=== PATIENT | female | born 1960 | race African-American/Black ===

== ENCOUNTER 2016-12-08 13:54 | Inpatient (IN) | payer OTHER ==
[2016-12-08 15:13] VITALS: BMI 19.1
--- NOTE | 2016-12-08 17:03 | HP ---
COWS - Scale Resting Pulse: 1= [place] 81-100 Sweatin=Flushed/Facial Moisture Restless Observation: 1= Difficult to Sit Still Pupil Size: 2= Moderately Dilated Bone or Joint Aches: 2= Severe Diffuse Aches Runny Nose/ Eye Tearin= Runny Nose/Eyes GI Upset > 30mins: 2= Nausea/Diarrhea Tremor Observation: 2= Slight Tremor Visible Yawning Observation: 1= 1-2x During Session Anxiety or Irritability: 2=Irritable/Anxious Goose Flesh Skin: 0=Smooth Skin COWS Score: 17 CIWA Score - CIWA Score Nausea/Vomitin Muscle Tremors: 4-Moderate,w/Arms Extend Anxiety: 4-Mod. Anxious/Guarded Agitation: 3 Paroxysmal Sweats: 3 Orientation: 0-Oriented Tacttile Disturbances: 0-None Auditory Disturbances: 0-None Visual Disturbances: 0-None Headache: 0-None Present CIWA-Ar Total Score: 17 Admission ROS BHS - HPI Chief Complaint: Withdrawal sx. Allergies/Adverse Reactions: Allergies Allergy/AdvReac Type Severity Reaction Status Date / Time No Known Allergies Allergy Verified 12/08/16 16:58 History of Present Illness: 55 y/o woman with a long hx. of drug and alcohol dependence is admitted for detox. Pt. has been in previous detox & rehab denies significant sobriety. She' s on OTP being detox for non-compliance, however she'll be build up once they know that she's in detox. We'll order detox protocol and program will be called on Saturday pt. is ok with the plan. Exam Limitations: No Limitations - Ebola screening Have you traveled outside of the country in the last 21 days: No Have you had contact with anyone from an Ebola affected area: No Have you been sick,other than usual withdrawal symptoms: No Do you have a fever: No - Review of Systems Constitutional: Diaphoresis EENT: reports: No Symptoms Reported Respiratory: reports: Cough, Shortness of Breath (COPD) Cardiac: reports: No Symptoms Reported GI: reports: Nausea, Abdominal cramping : reports: Frequency Musculoskeletal: reports: Back Pain, Joint Pain Integumentary: reports: Sweating Neuro: reports: Tremors Endocrine: reports: No Symptoms Reported Hematology: reports: No Symptoms Reported Psychiatric: reports: No Sypmtoms Reported Other Systems: Reviewed and Negative Patient History - Patient Medical History Hx Anemia: No Hx Asthma: No Hx Chronic Obstructive Pulmonary Disease (COPD): Yes Hx Cancer: No Hx Cardiac Disorders: No Hx Congestive Heart Failure: No Hx Hypertension: Yes (Non-compliant with meds, she thinks it's Lisinopril) Hx Hypercholesterolemia: No Hx Pacemaker: No HX Cerebrovascular Accident: No Hx Seizures: No Hx Dementia: No Hx Diabetes: No Hx Gastrointestinal Disorders: No Hx Liver Disease: No Hx Genitourinary Disorders: No Hx Sexually Transmitted Disorders: No Hx Renal Disease (ESRD): No Hx Thyroid Disease: No Hx Human Immunodeficiency Virus (HIV): No Hx Hepatitis C: No Hx Depression: Yes Hx Suicide Attempt: No Hx Bipolar Disorder: Yes Hx Schizophrenia: No - Patient Surgical History Past Surgical History: Yes Hx Lung Surgery: Yes (mass removed 06/2013) Hx Cholecystectomy: Yes Hx Hysterectomy: (s/p tubal ligation ) Other Surgical History: Tubal Ligation & Mass Removed from Lung Anesthesia Reaction: No - PPD History Previous Implant?: Yes Documented Results: Positive w/o proof PPD to be Administered?: Yes - Reproductive History Patient is a Female of Child Bearing Age (11 -55 yrs old): No Last Menstrual Period: 12/03/07 Patient : No - Smoking Cessation Smoking history: Current every day smoker Have you smoked in the past 12 months: Yes Aproximately how many cigarettes per day: 15 Hx Chewing Tobacco Use: No Initiated information on smoking cessation: Yes 'Breaking Loose' booklet given: 12/08/16 - Substance & Tx. History Hx Alcohol Use: Yes Hx Substance Use: Yes Substance Use Type: Alcohol, Heroin, Opiates Hx Substance Use Treatment: Yes (Rehab AT [facility] in 2013) - Substances Abused Alcohol Route: Oral Frequency: Daily Amount used: Beer 3-4(6pack) Age of first use: 19 (none after that until 49 y/o) Date of Last Use: 12/08/16 Heroin Route: Inhalation Frequency: Daily Amount used: 4 bags Age of first use: 22 Date of Last Use: 12/08/16 Family Disease History - Family Disease History Family Disease History: Diabetes: Grandparent (HTN), Heart Disease: Grandparent , Mother (HTN), Other: Brother (Heroin IV) Admission Physical Exam BHS - Vital Signs Vital Signs: Vital Signs - 24 hr 12/08/16 15:11 Temperature 98.3 F Pulse Rate 90 Respiratory 20 Rate Blood Pressure 137/94 - Physical General Appearance: Yes: Alcohol on Breath, Tremorous, Irritable, Sweating, Anxious HEENTM: Yes: Nasal Congestion, Rhinorrhea Respiratory: Yes: Chest Non-Tender, Lungs Clear, Normal Breath Sounds Neck: Yes: Supple Breast: Yes: Breast Exam Deferred Cardiology: Yes: Regular Rhythm, Regular Rate, S1, S2 Abdominal: Yes: Normal Bowel Sounds, Non Tender, Flat, Soft Genitourinary: Yes: Within Normal Limits Back: Yes: Within Normal Limits Musculoskeletal: Yes: Within Normal Limits Extremities: Yes: Tremors Neurological: Yes: Fully Oriented, Alert Integumentary: Yes: Diaphoresis Lymphatic: Yes: Within Normal Limits - Diagnostic (1) COPD (chronic obstructive pulmonary disease) with emphysema Current Visit: Yes Status: Chronic (2) Alcohol dependence with uncomplicated withdrawal Current Visit: Yes Status: Acute (3) Opioid dependence with withdrawal Current Visit: Yes Status: Acute Cleared for Admission [facility] - Detox or Rehab [facility] Level of Care: Medically Managed Detox Regimen/Protocol: Methadone/Librium [facility] Breath Alcohol Content Breath Alcohol Content: 0.024 Urine Pregancy Test - Result Urine Test Results: Negative- NO Line Present Urine Drug Screen - Results Drug Screen Negative: No Urine Drug Screen Results: THC-Marijuana, OPI-Opiates, MTD-Methadone
[2016-12-08] MEDS ORDERED: MAGNESIUM HYDROX 2400MG/30ML ORAL SUSPENSION 30 ML CUP PO PRN (17:20)
[2016-12-08] MEDS ORDERED: chlordiazePOXIDE HCL 25 MG CAPSULE PO PRN (17:20)
[2016-12-08] MEDS ORDERED: guaiFENesin/D-METHORPHAN HB 10 ML UNIT-DOSE CUPS PO PRN (17:20)
[2016-12-08] MEDS ORDERED: MAG HYDROX/AL HYDROX/SIMETH 30 ML UNIT-DOSE CUP PO PRN (17:20)
[2016-12-08] MEDS ORDERED: METHADONE HCL 10 MG TABLET (FOR DETOX USE ONLY) PO ONE ×2 (17:20→23:00)
[2016-12-08] MEDS ORDERED: MAGNESIUM CITRATE 300 ML BOTTLE PO PRN (17:20)
[2016-12-08] MEDS ORDERED: NICOTINE POLACRILEX 2 MG GUM BC PRN (17:20)
[2016-12-08] MEDS ORDERED: MENTHOL/PHENOL 1 EACH UD MM PRN (17:20)
[2016-12-08] MEDS ORDERED: chlordiazePOXIDE HCL 25 MG CAPSULE PO ONE (17:20)
[2016-12-08] MEDS ORDERED: P-EPHED 60MG/TRIPROLIDI 2.5MG TABLET PO PRN (17:20)
[2016-12-08] MEDS ORDERED: LOPERAMIDE HCL 2 MG CAPSULE PO PRN (17:20)
[2016-12-08] MEDS ORDERED: ALBUTEROL SO4 18 GM HFA INHALER IH PRN (17:22)
[2016-12-08] MEDS ORDERED: ALBUTEROL SO4 2.5/IPRATROPIUM 0.5 INH SOL 3 ML VIAL.NEB. NEB PRN (17:25)
[2016-12-08] MEDS: NICOTINE 21 MG/24 HOURS TOPICAL PATCH TD SCH (18:01)
[2016-12-08 20:15] LABS: URINE APPEARANCE SLCLOUDY; URINE BILIRUBIN NEGATIVE (NEGATIVE); URINE BLOOD 1+ (NEGATIVE); URINE COLOR LTYELLOW; URINE GLUCOSE (UA) NEGATIVE (NEGATIVE); URINE KETONE NEGATIVE (NEGATIVE); URINE NITRITE NEGATIVE (NEGATIVE); URINE PROTEIN NEGATIVE (NEGATIVE); URINE UROBILINOGEN NEGATIVE mg/dL (0.2-1.0)
[2016-12-08 22:27] LABS: URINE LEUK ESTERASE 2+ (NEGATIVE)
[2016-12-08] MEDS: chlordiazePOXIDE HCL 25 MG CAPSULE PO SCH (22:56)
[2016-12-08] MEDS: THIAMINE HCL 100 MG TABLET (FP) PO SCH (22:56)
[2016-12-08] MEDS: diphenhydrAMINE HCL 50 MG CAPSULE PO PRN (22:56)
[2016-12-08] MEDS: TIOTROPIUM BROMIDE 18 MCG/INH (DEVICE W/ 5 CAPSULES) IH SCH ×2 (22:56→23:00)
[2016-12-08 23:28] LABS: URINE WBC 15-20 (3-5)
[2016-12-09] MEDS: ACETAMINOPHEN 325 MG TABLET (FP) PO PRN ×3 (05:59→20:00)
[2016-12-09] MEDS: chlordiazePOXIDE HCL 25 MG CAPSULE PO SCH ×4 (06:01→22:25)
[2016-12-09] MEDS ORDERED: AZITHROMYCIN 500 MG TABLET PO ONE (07:01)
--- NOTE | 2016-12-09 07:04 | PN ---
[facility] Progress Note Note: ASKED TO SEE PT FOR FEVER 102. PT C/O PRODUCTIVE COUGH WITH GREENISH BROWNISH SPUTUM FOR PAST 3 WEEKS. C/O SOB, FEVER, SORE THROAT. DENIES C.P., N/V/D Vital Signs Temperature 100.2 F H 12/09/16 07:00 Pulse Rate 131 H 12/09/16 06:00 Respiratory Rate 16 12/09/16 06:00 Blood Pressure 133/91 12/09/16 06:00 O2 Sat by Pulse Oximetry (%) REPEAT TEMP 102 P 93 O2 SAT 97 % RA SKIN HOT TO TOUCH HEENT: MMM, PHARYNX PINK NECK: + LYMPH NODES CV TACHY LUNGS DECREASED BREATH SOUNDS A- PHARYNGITIS/ URI P- PO HYDRATION START AZITHROMYCIN 500 MG NOW AZITHROMYCIN 250 MG DAYS 2-5 PO DAILY TYLENOL/MOTRIN
[2016-12-09] MEDS: IBUPROFEN 400 MG TABLET (FP) PO PRN ×2 (07:25→17:02)
[2016-12-09] MEDS ORDERED: AZITHROMYCIN 250 MG TABLET PO ONE (07:45)
[2016-12-09] MEDS ORDERED: METHADONE HCL 10 MG TABLET (FOR DETOX USE ONLY) PO SCH (10:00)
[2016-12-09 10:16] LABS: MCHC 33.2 g/dl (32.0-36.0); MEAN CELL VOLUME 96.5 fl (80-96); MEAN PLT VOLUME 9.2 fl (7.5-11.1); PLATELET COUNT 194 K/MM3 (134-434); RDW 13.3 % (11.6-15.6); WHITE BLOOD COUNT 10.4 K/mm3 (4.0-10.0)
[2016-12-09 10:36] LABS: ALBUMIN 3.1 g/dl (3.4-5.0); ALK PHOS 93 U/L (45-117); ANION GAP 8 (8-16); BILIRUBIN,TOTAL 0.9 mg/dL (0.2-1.0); CALCIUM 8.9 mg/dL (8.5-10.1); CO2 25 mmol/L (21-32); CREATININE 0.5 mg/dL (0.55-1.02); GLUCOSE,RANDOM 114 mg/dL (74-106); SGOT/AST 34 U/L (15-37); SGPT/ALT 21 U/L (12-78); TOT PROT 7.4 g/dl (6.4-8.2)
[2016-12-09] MEDS: PRENATAL VITAMINS W/ FOLIC ACID TABLET (FP) PO SCH (11:02)
[2016-12-09] MEDS: TIOTROPIUM BROMIDE 18 MCG/INH (DEVICE W/ 5 CAPSULES) IH SCH (11:04)
[2016-12-09] MEDS: NICOTINE 21 MG/24 HOURS TOPICAL PATCH TD SCH (11:05)
--- NOTE | 2016-12-09 14:36 | PN ---
[facility] CIWA - CIWA Score Nausea/Vomitin Muscle Tremors: 3 Anxiety: 3 Agitation: 3 Paroxysmal Sweats: 1-Minimal Palms Moist Orientation: 0-Oriented Tacttile Disturbances: 1-Very Mild Itch/Numbness Auditory Disturbances: 1-Very Mild Visual Disturbances: 0-None Headache: 2-Mild CIWA-Ar Total Score: 17 BHS COWS - Scale Resting Pulse: 1= [place] 81-100 Sweatin= Chills/Flushing Restless Observation: 3= Extraneous Movement Pupil Size: 1= Pupils >than Normal Bone or Joint Aches: 2= Severe Diffuse Aches Runny Nose/ Eye Tearin= Runny Nose/Eyes GI Upset > 30mins: 2= Nausea/Diarrhea Tremor Observation of Outstretched Hands: 2= Slight Tremor Visible Yawning Observation: 1= 1-2x During Session Anxiety or Irritability: 2=Irritable/Anxious Goose Flesh Skin: 0=Smooth Skin COWS Score: 17 [facility] Progress Note (SOAP) Subjective: ALERT,IRRITABLE,ANXIOUS,INTERRUPTED SLEEP,TREMOR,PAIN IN THE BODY AND BACK, COUGHING GREENISH MUCOUS Objective: 12/09/16 14:33 Vital Signs Temperature 97 F L 12/09/16 10:27 Pulse Rate 87 12/09/16 10:27 Respiratory Rate 18 12/09/16 10:27 Blood Pressure 125/57 12/09/16 10:27 O2 Sat by Pulse Oximetry (%) 12/09/16 14:34 12/09/16 14:34 Laboratory Last Values WBC 10.4 K/mm3 (4.0-10.0) H D 12/09/16 07:40 RBC 4.39 M/mm3 (3.60-5.2) 12/09/16 07:40 Hgb 14.1 GM/dL (10.7-15.3) 12/09/16 07:40 Hct 42.3 % (32.4-45.2) 12/09/16 07:40 MCV 96.5 fl (80-96) H 12/09/16 07:40 MCH 32.0 pg (25.7-33.7) 12/09/16 07:40 MCHC 33.2 g/dl (32.0-36.0) 12/09/16 07:40 RDW 13.3 % (11.6-15.6) 12/09/16 07:40 Plt Count 194 K/MM3 (134-434) 12/09/16 07:40 MPV 9.2 fl (7.5-11.1) 12/09/16 07:40 Sodium 134 mmol/L (136-145) L 12/09/16 07:40 Potassium 3.5 mmol/L (3.5-5.1) 12/09/16 07:40 Chloride 101 mmol/L (98-107) 12/09/16 07:40 Carbon Dioxide 25 mmol/L (21-32) 12/09/16 07:40 Anion Gap 8 (8-16) 12/09/16 07:40 BUN 4 mg/dL (7-18) L 12/09/16 07:40 Creatinine 0.5 mg/dL (0.55-1.02) L D 12/09/16 07:40 Creat Clearance w eGFR > 60 (>60) 12/09/16 07:40 Random Glucose 114 mg/dL (74-106) H D 12/09/16 07:40 Calcium 8.9 mg/dL (8.5-10.1) 12/09/16 07:40 Total Bilirubin 0.9 mg/dL (0.2-1.0) D 12/09/16 07:40 AST 34 U/L (15-37) 12/09/16 07:40 ALT 21 U/L (12-78) 12/09/16 07:40 Alkaline Phosphatase 93 U/L (45-117) D 12/09/16 07:40 Total Protein 7.4 g/dl (6.4-8.2) 12/09/16 07:40 Albumin 3.1 g/dl (3.4-5.0) L 12/09/16 07:40 Urine Color Ltyellow 12/08/16 19:00 Urine Appearance Slcloudy 12/08/16 19:00 Urine pH 5.0 (5.0-8.0) D 12/08/16 19:00 Ur Specific [place] <= 1.005 (1.005-1.025) 12/08/16 19:00 Urine Protein Negative (NEGATIVE) 12/08/16 19:00 Urine Glucose (UA) Negative (NEGATIVE) 12/08/16 19:00 Urine Ketones Negative (NEGATIVE) 12/08/16 19:00 Urine Blood 1+ (NEGATIVE) H 12/08/16 19:00 Urine Nitrite Negative (NEGATIVE) 12/08/16 19:00 Urine Bilirubin Negative (NEGATIVE) 12/08/16 19:00 Urine Urobilinogen Negative mg/dL (0.2-1.0) 12/08/16 19:00 Ur Leukocyte Esterase 2+ (NEGATIVE) H 12/08/16 19:00 Urine RBC 3-5 /hpf (0-3) 12/08/16 19:00 Urine WBC 15-20 (3-5) 12/08/16 19:00 Ur Epithelial Cells 3-5 /HPF 12/08/16 19:00 RPR Titer Nonreactive (NONREACTIVE) 12/09/16 07:40 Assessment: 12/09/16 14:35 WITHDRAWAL SYMPTOM Plan: CONTINUE DETOX,ZITHROMAX FOR ACUTE BRONCHITIS,FLUID,BGM MONITORING
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
--- NOTE | 2016-12-09 16:33 | EKG ---
Test Reason : Blood Pressure : / mmHG Vent. Rate : 077 BPM Atrial Rate : 077 BPM P-R Int : 168 ms QRS Dur : 088 ms QT Int : 398 ms P-R-T Axes : 071 072 074 degrees QTc Int : 450 ms NORMAL SINUS RHYTHM PROBALE RIGHT ATRIAL ABNORMALITY RIGHTWARD AXIS NONSPECIFIC T WAVE ABNORMALITY NO PREVIOUS ECGS AVAILABLE CLINICAL CORRELATION IS RECOMMENDED Confirmed by JORGE CAVAZOS MD ([id number]) on 12/09/2016 4:33:26 PM Referred By: Confirmed By:JORGE CAVAZOS MD
[2016-12-09] MEDS: diphenhydrAMINE HCL 50 MG CAPSULE PO PRN (22:24)
[2016-12-09] MEDS: THIAMINE HCL 100 MG TABLET (FP) PO SCH (22:24)
[2016-12-09] MEDS: QUEtiapine FUMARATE 25 MG TABLET (FP) PO SCH (22:24)
[2016-12-10] MEDS: ACETAMINOPHEN 325 MG TABLET (FP) PO PRN ×2 (05:32→17:44)
[2016-12-10] MEDS: chlordiazePOXIDE HCL 25 MG CAPSULE PO SCH ×3 (05:32→17:43)
[2016-12-10] MEDS ORDERED: IBUPROFEN 400 MG TABLET (FP) PO PRN (10:39)
--- NOTE | 2016-12-10 10:48 | PN ---
[facility] CIWA - CIWA Score Nausea/Vomitin-No Nausea/No Vomiting Muscle Tremors: 4-Moderate,w/Arms Extend Anxiety: 3 Agitation: 4-Moderately Restless Paroxysmal Sweats: 3 Orientation: 0-Oriented Tacttile Disturbances: 0-None Auditory Disturbances: 0-None Visual Disturbances: 0-None Headache: 0-None Present CIWA-Ar Total Score: 14 S COWS - Scale Resting Pulse: 2= [place] 101-120 Sweatin=Flushed/Facial Moisture Restless Observation: 1= Difficult to Sit Still Pupil Size: 0= Normal to Room Light Bone or Joint Aches: 2= Severe Diffuse Aches Runny Nose/ Eye Tearin= Nasal Congestion GI Upset > 30mins: 0= None Tremor Observation of Outstretched Hands: 1= Tremor [place], Not Seen Yawning Observation: 1= 1-2x During Session Anxiety or Irritability: 1=Feels Anxious/Irritable Goose Flesh Skin: 3=Piloerection COWS Score: 14 [facility] Progress Note (SOAP) Subjective: chronic back pain sweats mild shakes interrupted sleep agitation Objective: 12/10/16 10:46 Vital Signs Temperature 96.8 F L 12/10/16 10:02 Pulse Rate 110 H 12/10/16 10:02 Respiratory Rate 18 12/10/16 10:02 Blood Pressure 131/79 12/10/16 10:02 O2 Sat by Pulse Oximetry (%) Laboratory Tests 12/08/16 12/08/16 12/09/16 19:00 19:00 07:40 WBC 10.4 H D RBC 4.39 Hgb 14.1 Hct 42.3 MCV 96.5 H MCH 32.0 MCHC 33.2 RDW 13.3 Plt Count 194 MPV 9.2 Sodium Potassium Chloride Carbon Dioxide Anion Gap BUN Creatinine Creat Clearance w eGFR POC Glucometer Random Glucose Calcium Total Bilirubin AST ALT Alkaline Phosphatase Total Protein Albumin Urine Color Ltyellow Urine Appearance Slcloudy Urine pH 5.0 D Ur Specific [place] <= 1.005 Urine Protein Negative Urine Glucose (UA) Negative Urine Ketones Negative Urine Blood 1+ H Urine Nitrite Negative Urine Bilirubin Negative Urine Urobilinogen Negative Ur Leukocyte Esterase 2+ H Urine RBC 3-5 Urine WBC 15-20 Ur Epithelial Cells 3-5 RPR Titer 12/09/16 12/09/16 12/10/16 07:40 07:40 06:20 WBC RBC Hgb Hct MCV MCH MCHC RDW Plt Count MPV Sodium 134 L Potassium 3.5 Chloride 101 Carbon Dioxide 25 Anion Gap 8 BUN 4 L Creatinine 0.5 L D Creat Clearance w eGFR > 60 POC Glucometer 133 Random Glucose 114 H D Calcium 8.9 Total Bilirubin 0.9 D AST 34 ALT 21 Alkaline Phosphatase 93 D Total Protein 7.4 Albumin 3.1 L Urine Color Urine Appearance Urine pH Ur Specific [place] Urine Protein Urine Glucose (UA) Urine Ketones Urine Blood Urine Nitrite Urine Bilirubin Urine Urobilinogen Ur Leukocyte Esterase Urine RBC Urine WBC Ur Epithelial Cells RPR Titer Nonreactive aaox3 ambulating no acute distress Assessment: 12/10/16 10:46 withdrawal sx Plan: continue detox increase fluids lidocaine patch motrin 800mg tid
[2016-12-10] MEDS: AZITHROMYCIN 250 MG TABLET PO SCH (10:53)
[2016-12-10] MEDS: METHADONE HCL 5 MG TABLET (FOR DETOX USE ONLY) PO SCH (10:53)
[2016-12-10] MEDS: PRENATAL VITAMINS W/ FOLIC ACID TABLET (FP) PO SCH (10:53)
[2016-12-10] MEDS: TIOTROPIUM BROMIDE 18 MCG/INH (DEVICE W/ 5 CAPSULES) IH SCH (10:53)
[2016-12-10] MEDS: NICOTINE 21 MG/24 HOURS TOPICAL PATCH TD SCH (10:58)
[2016-12-10] MEDS ORDERED: LIDOCAINE 5% TOPICAL PATCH TP ONE (11:01)
[2016-12-10] MEDS ORDERED: LIDOCAINE PATCH REMOVAL MC SCH (22:00)
[2016-12-10] MEDS: THIAMINE HCL 100 MG TABLET (FP) PO SCH (22:17)
[2016-12-10] MEDS: QUEtiapine FUMARATE 25 MG TABLET (FP) PO SCH (22:17)
[2016-12-10] MEDS: diphenhydrAMINE HCL 50 MG CAPSULE PO PRN (22:17)
[2016-12-10] MEDS: chlordiazePOXIDE 5 MG CAPSULE PO SCH (22:17)
[2016-12-11] MEDS: chlordiazePOXIDE 5 MG CAPSULE PO SCH ×2 (05:27→10:55)
[2016-12-11 09:30] VITALS: BP 108/79; PULSE 109; TEMP 97.2
[2016-12-11] MEDS ORDERED: LIDOCAINE 5% TOPICAL PATCH TP SCH (10:00)
[2016-12-11] MEDS: PRENATAL VITAMINS W/ FOLIC ACID TABLET (FP) PO SCH (10:55)
[2016-12-11] MEDS: AZITHROMYCIN 250 MG TABLET PO SCH (10:55)
[2016-12-11] MEDS: METHADONE HCL 5 MG TABLET (FOR DETOX USE ONLY) PO SCH (10:56)
[2016-12-11] MEDS: NICOTINE 21 MG/24 HOURS TOPICAL PATCH TD SCH (10:57)
--- NOTE | 2016-12-11 11:30 | PN ---
[facility] Progress Note (SOAP) Subjective: sweats agitation interrupted sleep Objective: 12/11/16 11:29 Vital Signs Temperature 97.2 F L 12/11/16 09:30 Pulse Rate 109 H 12/11/16 09:30 Respiratory Rate 18 12/11/16 09:30 Blood Pressure 108/79 12/11/16 09:30 O2 Sat by Pulse Oximetry (%) aaox3 ambulating no acute distress Assessment: 12/11/16 11:30 withdrawal sx Plan: continue detox increase fluids
[2016-12-11] MEDS: TIOTROPIUM BROMIDE 18 MCG/INH (DEVICE W/ 5 CAPSULES) IH SCH (11:36)
[2016-12-11] MEDS ORDERED: chlordiazePOXIDE HCL 10 MG CAPSULE PO SCH (23:00)
[2016-12-12] MEDS ORDERED: METHADONE HCL 10 MG TABLET (FOR DETOX USE ONLY) PO SCH (10:00)
--- NOTE | 2016-12-12 13:58 | PN ---
S Progress Note Note: pt did not want to complete detox she states she had to go home to make sure her mother is ok. pt was asked to call so pt can continue to stay and complete detox but pt insisted on leaving and signed out AMA.
--- NOTE | 2016-12-12 13:59 | DS ---
[facility] Detox Discharge Summary Admission Date: 12/08/16 - History Present History: Alcohol Dependence - Physical Exam Results Vital Signs: Vital Signs Temperature 97.2 F L 12/11/16 09:30 Pulse Rate 109 H 12/11/16 09:30 Respiratory Rate 18 12/11/16 09:30 Blood Pressure 108/79 12/11/16 09:30 O2 Sat by Pulse Oximetry (%) - Treatment Hospital Course: Responded well, Discharged Condition Good - Medication Discharge Medications: Ambulatory Orders Albuterol Sulfate Inhaler - [Ventolin HFA Inhaler -] 2 inh PO Q4H PRN 02/19/14 Mirtazapine [Remeron -] 15 mg PO HS 02/19/14 Mirtazapine [Remeron -] 15 mg PO HS #30 tablet 03/15/14 Quetiapine Fumarate [Seroquel -] 50 mg PO HS #30 tablet 03/15/14 - Diagnosis (1) Alcohol dependence with uncomplicated withdrawal Status: Chronic (2) Bronchitis Status: Chronic (3) Opioid dependence with withdrawal Status: Chronic (4) Substance-induced sleep disorder Status: Acute (5) COPD (chronic obstructive pulmonary disease) with emphysema Status: Chronic (6) Methadone maintenance therapy patient Status: Chronic (7) Nicotine dependence Status: Chronic Qualifiers: Nicotine product type: cigarettes Substance use status: uncomplicated Qualified Code(s): F17.210 - Nicotine dependence, cigarettes, uncomplicated; F17.210 - Nicotine dependence, cigarettes, uncomplicated - AMA Did Patient Leave Against Medical Advice: Yes (i am going home)
[2016-12-13] MEDS ORDERED: METHADONE HCL 5 MG TABLET (FOR DETOX USE ONLY) PO SCH (06:00)
== END 2016-12-11 13:00 | disposition left against medical advice (07) | DRG 770 ==
LOC: YASAS 13:54 → Y6N 16:51
PROVIDERS: ADMIT Internal Medicine; ATTEND Internal Medicine
PROC: HZ2ZZZZ Detoxification Services for Substance Abuse Treatment (ICD-10-PCS; principal; 2016-12-08)
DX: F11.23 Opioid dependence with withdrawal (principal); F10.230 Alcohol dependence with withdrawal, uncomplicated; F17.210 Nicotine dependence, cigarettes, uncomplicated; F19.282 Other psychoactive substance dependence with psychoactive substance-induced sleep disorder; J40 Bronchitis, not specified as acute or chronic; J43.9 Emphysema, unspecified; E78.5 Hyperlipidemia, unspecified; J02.9 Acute pharyngitis, unspecified; J06.9 Acute upper respiratory infection, unspecified; Z85.118 Personal history of other malignant neoplasm of bronchus and lung; Z91.14 Patient's other noncompliance with medication regimen
CPT/HCPCS: 36415; 71020-TC; 80053; 81003; 81015; 85027; 86593; 93005; 93010; 94640

== ENCOUNTER 2018-05-07 13:07 | Inpatient (IN) | payer OTHER ==
[2018-05-07 14:28] VITALS: BMI 18.2
--- NOTE | 2018-05-07 17:25 | HP ---
"COWS - Scale Resting Pulse: 2= [place] 101-120 Sweatin=Flushed/Facial Moisture Restless Observation: 1= Difficult to Sit Still Pupil Size: 2= Moderately Dilated (Pupils = 5 mm) Bone or Joint Aches: 0= None Runny Nose/ Eye Tearin= Runny Nose/Eyes GI Upset > 30mins: 2= Nausea/Diarrhea (No diarrhea) Tremor Observation: 4= Gross Tremor/Twitching Yawning Observation: 0= None Anxiety or Irritability: 1=Feels Anxious/Irritable Goose Flesh Skin: 0=Smooth Skin COWS Score: 16 CIWA Score Nausea/Vomitin-Mild Nausea/No Vomiting Muscle Tremors: 4-Moderate,w/Arms Extend Anxiety: 1-Mildly Anxious Agitation: 4-Moderately Restless Paroxysmal Sweats: 3 (Increased facial moisture) Orientation: 0-Oriented Tacttile Disturbances: 0-None Auditory Disturbances: 0-None Visual Disturbances: 0-None Headache: 0-None Present CIWA-Ar Total Score: 13 - Admission Criteria OAS Guidelines: Admission for Medically Managed Detox: Requires at least one of the followin. CIWA greater than 12 2. Seizures within the past 24 hours 3. Delirium tremens within the past 24 hours 4. Hallucinations within the past 24 hours 5. Acute intervention needed for co occurring medical disorder 6. Acute intervention needed for co occurring psychiatric disorder 7. Severe withdrawal that cannot be handled at a lower level of care (continued vomiting, continued diarrhea, abnormal vital signs) requiring intravenous medication and/or fluids 8. Patient presents the following: CIWA greater than 12 Admission Criteria Met: Admission criteria met Admission ROS [facility] Chief Complaint: Here with heroin and alcohol withdrawal. Allergies/Adverse Reactions: Allergies Allergy/AdvReac Type Severity Reaction Status Date / Time No Known Allergies Allergy Verified 05/07/18 16:14 History of Present Illness: Here for heroin and alcohol withdrawal. Heroin use began at age 19. Alcohol use began at age 19. Nicotine use began at age 19. Declined nicotine patch. Will consider nicotine gum. Denies seizures, blackouts, overdoses. Hx: COPD, PPD+. Denies other significant PMH. MHHx: Depression and Bipolar disorder. Denies thoughts of harming self or others. Search Terms: Jemma Woodard, 1960 Search Date: 05/07/2018 05:20:18 PM The Drug Utilization Report below displays all of the controlled substance prescriptions, if any, that your patient has filled in the last twelve months. The information displayed on this report is compiled from pharmacy submissions to the Department, and accurately reflects the information as submitted by the pharmacies. This report was requested by: Brianna Solomon | Reference #: [id number] There are no results for the search terms that you entered. Exam Limitations: No Limitations - Ebola screening Have you traveled outside of the country in the last 21 days: No Have you had contact with anyone from an Ebola affected area: No Have you been sick,other than usual withdrawal symptoms: No Do you have a fever: No - Review of Systems Constitutional: Diaphoresis, Changes in sleep (Difficulty fallin and staying asleep - no meds) EENT: reports: Blurred Vision, Nose Congestion, Dental Problems (No teeth. Chews and swallows ok.) Respiratory: reports: Shortness of Breath, SOB with Exertion (Hx: COPD) Cardiac: reports: No Symptoms Reported GI: reports: No Symptoms Reported : reports: No Symptoms Reported Musculoskeletal: reports: No Symptoms Reported Integumentary: reports: No Symptoms Reported Neuro: reports: Tremors Endocrine: reports: Increased Thirst Hematology: reports: No Symptoms Reported Psychiatric: reports: Judgement Intact, Orientated x3, Anxious, Depressed ( Denies thoughts of harming self or others) Patient History - Patient Medical History Hx Anemia: No Hx Asthma: No Hx Chronic Obstructive Pulmonary Disease (COPD): Yes Hx Cancer: No Hx Cardiac Disorders: No Hx Congestive Heart Failure: No Hx Hypertension: No Hx Hypercholesterolemia: No Hx Pacemaker: No HX Cerebrovascular Accident: No Hx Seizures: No Hx Dementia: No Hx Diabetes: No Hx Gastrointestinal Disorders: No Hx Liver Disease: No Hx Genitourinary Disorders: No Hx Sexually Transmitted Disorders: No Hx Renal Disease (ESRD): No Hx Thyroid Disease: No Hx Human Immunodeficiency Virus (HIV): No Hx Hepatitis C: No Hx Depression: Yes Hx Suicide Attempt: No Hx Bipolar Disorder: Yes Hx Schizophrenia: No - Patient Surgical History Past Surgical History: Yes Hx Neurologic Surgery: No Hx Cataract Extraction: No Hx Cardiac Surgery: No Hx Lung Surgery: No Hx Breast Surgery: No Hx Breast Biopsy: No Hx Abdominal Surgery: No Hx Appendectomy: No Hx Cholecystectomy: Yes Hx Genitourinary Surgery: No Hx Section: No Hx Orthopedic Surgery: No Hx Hysterectomy: (s/p tubal ligation ) Other Surgical History: Tubal Ligation Anesthesia Reaction: No - PPD History Documented Results: Positive w/o proof Results: POSITIVE PPD to be Administered?: No - Reproductive History Patient is a Female of Child Bearing Age (11 -55 yrs old): No Last Menstrual Period: 12/03/07 Patient : No - Smoking Cessation Smoking history: Current every day smoker Have you smoked in the past 12 months: Yes Aproximately how many cigarettes per day: 20 Hx Chewing Tobacco Use: No Initiated information on smoking cessation: Yes 'Breaking Loose' booklet given: 05/07/18 - Substance & Tx. History Hx Alcohol Use: Yes Hx Substance Use: Yes Substance Use Type: Alcohol, Heroin Hx Substance Use Treatment: Yes (detox, rehab) - Substances Abused Heroin Route: Inhalation Frequency: Daily Amount used: 4 BAGS Age of first use: 19 Date of Last Use: 05/07/18 Alcohol Route: Oral Frequency: Daily Amount used: 3 SIX PACKS OF BEER (12 OUNCES) Age of first use: 19 Date of Last Use: 05/07/18 Family Disease History - Family Disease History Family Disease History: Diabetes: Grandparent (HTN), Heart Disease: Grandparent , Mother (HTN), Other: Brother (Heroin IV) Admission Physical Exam S - Vital Signs Vital Signs: Vital Signs - 24 hr 05/07/18 14:24 Temperature 97.6 F Pulse Rate 110 H Respiratory 18 Rate Blood Pressure 122/92 - Physical General Appearance: Yes: Appropriately Dressed, Mild Distress, Tremorous, Sweating, Anxious (Increased facial moisture) HEENTM: Yes: EOMI, Hearing grossly Normal, Normocephalic, Normal Voice, KE[place]AN ( Pupils = 5 mm), Rhinorrhea Respiratory: Yes: Lungs Clear, Normal Breath Sounds, No Respiratory Distress Neck: Yes: No masses,lesions,Nodules, Supple Breast: Yes: Breast Exam Deferred Cardiology: Yes: Regular Rhythm, S1, S2, Tachycardia Abdominal: Yes: Non Tender, Flat, Soft, Increased Bowel Sounds Genitourinary: Yes: Within Normal Limits Back: Yes: Normal Inspection Musculoskeletal: Yes: full range of Motion, Gait Steady Extremities: Yes: Normal Capillary Refill, Normal Range of Motion, Non-Tender, Tremors (Increased tenderness of hands when arms extended) Neurological: Yes: molder II-XII NML intact, Fully Oriented, Alert, Motor Strength 5/5, Normal Mood/Affect Integumentary: Yes: Normal Color, Warm Lymphatic: Yes: Within Normal Limits - Diagnostic (1) History of positive PPD Current Visit: Yes Status: Chronic (2) Alcohol dependence with uncomplicated withdrawal Current Visit: Yes Status: Acute (3) Nicotine dependence Current Visit: Yes Status: Chronic Qualifiers: Nicotine product type: cigarettes Substance use status: uncomplicated Qualified Code(s): F17.210 - Nicotine dependence, cigarettes, uncomplicated (4) Opioid dependence with withdrawal Current Visit: Yes Status: Acute (5) COPD (chronic obstructive pulmonary disease) Current Visit: Yes Status: Chronic Qualifiers: COPD type: unspecified COPD Qualified Code(s): J44.9 - Chronic obstructive pulmonary disease, unspecified Cleared for Admission [facility] - Detox or Rehab [facility] Level of Care: Medically Managed Detox Regimen/Protocol: Methadone/Librium S Breath Alcohol Content Breath Alcohol Content: 0.034 Urine Pregancy Test - Result Urine Test Results: Negative - NO Line Present Urine Drug Screen - Results Drug Screen Negative: No Urine Drug Screen Results: OPI-Opiates Inpatient Rehab Admission - Rehab Decision to Admit Inpatient rehab admission?: No"
[2018-05-07] MEDS ORDERED: ONDANSETRON *ODT* 4 MG TABLET SL PRN (19:09)
[2018-05-07] MEDS ORDERED: BISMUTH SUBSALICYLATE 524 MG/30 ML UD PO PRN (19:09)
[2018-05-07] MEDS ORDERED: METHOCARBAMOL 500 MG TABLET PO PRN (19:09)
[2018-05-07] MEDS ORDERED: chlordiazePOXIDE HCL 10 MG CAPSULE PO PRN (19:09)
[2018-05-07] MEDS ORDERED: IBUPROFEN 400 MG TABLET (FP) PO PRN (19:09)
[2018-05-07] MEDS ORDERED: ACETAMINOPHEN 325 MG TABLET (FP) PO PRN ×2 (19:09)
[2018-05-07] MEDS ORDERED: MAGNESIUM CITRATE 300 ML BOTTLE PO PRN (19:09)
[2018-05-07] MEDS ORDERED: MENTHOL/PHENOL 1 EACH UD MM PRN (19:09)
[2018-05-07] MEDS ORDERED: MAG HYDROX/AL HYDROX/SIMETH 30 ML UNIT-DOSE CUP PO PRN (19:09)
[2018-05-07] MEDS ORDERED: QUEtiapine FUMARATE 50 MG TABLET PO PRN (19:09)
[2018-05-07] MEDS ORDERED: MAGNESIUM HYDROX 2400MG/30ML ORAL SUSPENSION 30 ML CUP PO PRN (19:09)
[2018-05-07] MEDS ORDERED: NICOTINE POLACRILEX 2 MG GUM BUC PRN (19:09)
[2018-05-07] MEDS ORDERED: chlordiazePOXIDE HCL 25 MG CAPSULE PO ONE (19:09)
[2018-05-07] MEDS ORDERED: ALBUTEROL SO4 0.083% IH SOL 2.5 MG/3 ML VIAL.NEB. NEB PRN (19:20)
[2018-05-07] MEDS: chlordiazePOXIDE HCL 25 MG CAPSULE PO SCH (22:16)
[2018-05-07] MEDS ORDERED: METHADONE HCL 10 MG TABLET (FOR DETOX USE ONLY) PO ONE (23:00)
[2018-05-07 23:06] LABS: URINE APPEARANCE SLCLOUDY; URINE BILIRUBIN NEGATIVE (<2.0 mg/dL); URINE COLOR LTYELLOW; URINE GLUCOSE (UA) NEGATIVE (NEGATIVE); URINE KETONE NEGATIVE (NEGATIVE); URINE LEUK ESTERASE 1+ (NEGATIVE); URINE NITRITE NEGATIVE (NEGATIVE); URINE PROTEIN NEGATIVE (NEGATIVE); URINE UROBILINOGEN NEGATIVE mg/dL (0.2-1.0)
[2018-05-07 23:18] LABS: EPI CELLS FEW /HPF (FEW); URINE BACTERIA RARE /hpf (NONE SEEN)
--- NOTE | 2018-05-08 03:15 | PN ---
[facility] Progress Note Note: Patient complained of cough Vital Signs Temperature 98.5 F 05/07/18 22:13 Pulse Rate 105 H 05/07/18 22:13 Respiratory Rate 18 05/08/18 00:30 Blood Pressure 146/86 05/07/18 22:13 O2 Sat by Pulse Oximetry (%) Action Guaifenesin 10ml oral Q6H ordered
[2018-05-08] MEDS: guaiFENesin/D-METHORPHAN HB 10 ML UNIT-DOSE CUPS PO PRN ×2 (03:28→22:48)
[2018-05-08] MEDS: chlordiazePOXIDE HCL 25 MG CAPSULE PO SCH ×2 (05:29→14:58)
[2018-05-08] MEDS ORDERED: THIAMINE HCL 100 MG TABLET (FP) PO SCH (10:00)
[2018-05-08] MEDS ORDERED: METHADONE HCL 10 MG TABLET (FOR DETOX USE ONLY) PO ONE (10:00)
[2018-05-08] MEDS ORDERED: PRENATAL VITAMINS W/ FOLIC ACID TABLET (FP) PO SCH (10:00)
[2018-05-08 10:40] LABS: ALK PHOS 73 U/L (45-117); ANION GAP 8 MMOL/L (8-16); BILIRUBIN,TOTAL 1.2 mg/dL (0.2-1); BLOOD UREA NITROGEN 4 mg/dL (7-18); CHLORIDE 101 mmol/L (98-107); CO2 27 mmol/L (21-32); CREATININE 0.5 mg/dL (0.55-1.3); GLUCOSE,RANDOM 86 mg/dL (74-106); HEMATOCRIT 42.4 % (32.4-45.2); HEMOGLOBIN 14.9 GM/dL (10.7-15.3); MCHC 35.1 g/dl (32.0-36.0); MEAN CELL VOLUME 99.7 fl (80-96); MEAN PLT VOLUME 8.4 fl (7.5-11.1); PLATELET COUNT 236 K/MM3 (134-434); POTASSIUM 3.9 mmol/L (3.5-5.1); RBC 4.25 M/mm3 (3.60-5.2); RDW 12.9 % (11.6-15.6); SGOT/AST 19 U/L (15-37); SGPT/ALT 13 U/L (13-61); SODIUM 136 mmol/L (136-145); TOT PROT 7.4 g/dl (6.4-8.2); WHITE BLOOD COUNT 4.9 K/mm3 (4.0-10.0)
[2018-05-08] MEDS ORDERED: cloNIDine HCL 0.1 MG TABLET PO PRN (12:01)
--- NOTE | 2018-05-08 14:05 | EKG ---
Test Reason : Blood Pressure : / mmHG Vent. Rate : 099 BPM Atrial Rate : 099 BPM P-R Int : 206 ms QRS Dur : 088 ms QT Int : 364 ms P-R-T Axes : 076 079 078 degrees QTc Int : 467 ms NORMAL SINUS RHYTHM POSSIBLE LEFT ATRIAL ENLARGEMENT BORDERLINE ECG WHEN COMPARED WITH ECG OF 08-DEC-2016 17:11, NO SIGNIFICANT CHANGE WAS FOUND Confirmed by ALEIDA RAMIREZ, JHOANA ([id number]) on 05/08/2018 2:05:25 PM Referred By: Confirmed By:JHOANA SHIN MD
[2018-05-08] MEDS: METHOCARBAMOL 500 MG TABLET PO SCH ×3 (14:58→22:07)
--- NOTE | 2018-05-08 15:25 | PN ---
[facility] CIWA - CIWA Score Nausea/Vomitin-Mild Nausea/No Vomiting Muscle Tremors: 4-Moderate,w/Arms Extend Anxiety: 2 Agitation: 3 Paroxysmal Sweats: 1-Minimal Palms Moist Orientation: 1-Uncertain about Date Tacttile Disturbances: 0-None Auditory Disturbances: 0-None Visual Disturbances: 0-None Headache: 0-None Present CIWA-Ar Total Score: 12 S COWS - Scale Resting Pulse: 1= [place] 81-100 Sweatin= Chills/Flushing Restless Observation: 0= Sits Still Pupil Size: 0= Normal to Room Light Bone or Joint Aches: 1= Mild Discomfort Runny Nose/ Eye Tearin= Nasal Congestion GI Upset > 30mins: 1= Stomach Cramp Tremor Observation of Outstretched Hands: 1= Tremor [place], Not Seen Yawning Observation: 1= 1-2x During Session Anxiety or Irritability: 1=Feels Anxious/Irritable Goose Flesh Skin: 0=Smooth Skin COWS Score: 8 [facility] Progress Note (SOAP) Subjective: headaches tremor sweating Objective: 05/08/18 15:26 Vital Signs Temperature 97.6 F 05/08/18 13:20 Pulse Rate 84 05/08/18 13:20 Respiratory Rate 18 05/08/18 13:20 Blood Pressure 143/93 05/08/18 13:20 O2 Sat by Pulse Oximetry (%) Laboratory Last Values WBC 4.9 K/mm3 (4.0-10.0) 05/08/18 07:00 RBC 4.25 M/mm3 (3.60-5.2) 05/08/18 07:00 Hgb 14.9 GM/dL (10.7-15.3) 05/08/18 07:00 Hct 42.4 % (32.4-45.2) 05/08/18 07:00 MCV 99.7 fl (80-96) H 05/08/18 07:00 MCH 35.0 pg (25.7-33.7) H 05/08/18 07:00 MCHC 35.1 g/dl (32.0-36.0) 05/08/18 07:00 RDW 12.9 % (11.6-15.6) 05/08/18 07:00 Plt Count 236 K/MM3 (134-434) D 05/08/18 07:00 MPV 8.4 fl (7.5-11.1) 05/08/18 07:00 Sodium 136 mmol/L (136-145) 05/08/18 07:00 Potassium 3.9 mmol/L (3.5-5.1) 05/08/18 07:00 Chloride 101 mmol/L (98-107) 05/08/18 07:00 Carbon Dioxide 27 mmol/L (21-32) 05/08/18 07:00 Anion Gap 8 MMOL/L (8-16) 05/08/18 07:00 BUN 4 mg/dL (7-18) L 05/08/18 07:00 Creatinine 0.5 mg/dL (0.55-1.3) L 05/08/18 07:00 Creat Clearance w eGFR > 60 (>60) 05/08/18 07:00 Random Glucose 86 mg/dL (74-106) 05/08/18 07:00 Calcium 9.0 mg/dL (8.5-10.1) 05/08/18 07:00 Total Bilirubin 1.2 mg/dL (0.2-1) H 05/08/18 07:00 AST 19 U/L (15-37) 05/08/18 07:00 ALT 13 U/L (13-61) 05/08/18 07:00 Alkaline Phosphatase 73 U/L (45-117) 05/08/18 07:00 Total Protein 7.4 g/dl (6.4-8.2) 05/08/18 07:00 Albumin 3.0 g/dl (3.4-5.0) L 05/08/18 07:00 Urine Color Ltyellow 05/07/18 22:10 Urine Appearance Slcloudy 05/07/18 22:10 Urine pH 6.0 (5.0-8.0) 05/07/18 22:10 Ur Specific [place] 1.003 (1.010-1.035) L 05/07/18 22:10 Urine Protein Negative (NEGATIVE) 05/07/18 22:10 Urine Glucose (UA) Negative (NEGATIVE) 05/07/18 22:10 Urine Ketones Negative (NEGATIVE) 05/07/18 22:10 Urine Blood 1+ (NEGATIVE) H 05/07/18 22:10 Urine Nitrite Negative (NEGATIVE) 05/07/18 22:10 Urine Bilirubin Negative (<2.0 mg/dL) 05/07/18 22:10 Urine Urobilinogen Negative mg/dL (0.2-1.0) 05/07/18 22:10 Ur Leukocyte Esterase 1+ (NEGATIVE) H 05/07/18 22:10 Urine WBC (Auto) 4 /hpf (3-5) 05/07/18 22:10 Urine RBC (Auto) 2 /hpf (0-3) 05/07/18 22:10 Ur Epithelial Cells Few /HPF (FEW) 05/07/18 22:10 Urine Bacteria Rare /hpf (NONE SEEN) 05/07/18 22:10 RPR Titer Nonreactive (NONREACTIVE) 05/08/18 07:00 lab noted Assessment: 05/08/18 15:26 alcohol and opiate withdrawal sx Plan: continue detox
[2018-05-08] MEDS ORDERED: QUEtiapine FUMARATE 50 MG TABLET PO ONE (22:00)
[2018-05-08] MEDS: chlordiazePOXIDE 5 MG CAPSULE PO SCH (22:07)
[2018-05-09] MEDS: guaiFENesin/D-METHORPHAN HB 10 ML UNIT-DOSE CUPS PO PRN (04:45)
[2018-05-09] MEDS: chlordiazePOXIDE 5 MG CAPSULE PO SCH (04:50)
[2018-05-09 06:42] VITALS: BP 156/99; PULSE 106; TEMP 98
[2018-05-09] MEDS: METHOCARBAMOL 500 MG TABLET PO SCH (07:02)
[2018-05-09] MEDS ORDERED: METHADONE HCL 10 MG TABLET (FOR DETOX USE ONLY) PO ONE (10:00)
[2018-05-09] MEDS ORDERED: chlordiazePOXIDE HCL 10 MG CAPSULE PO PRN (21:00)
[2018-05-09] MEDS ORDERED: chlordiazePOXIDE HCL 10 MG CAPSULE PO SCH (21:00)
--- NOTE | 2018-05-10 01:18 | DS ---
[facility] Detox Discharge Summary Admission Date: 05/07/18 Discharge Date: 05/10/18 - History Present History: Alcohol Dependence, Opioid Dependence Additional Comments: PATIENT ELECTED TO LEAVE DETOX UNIT AGAINST MEDICAL ADVICE PRIOR TO TIME OF ARRIVAL OF [employer] ON DETOX UNIT. THUS, MEDICAL ASSESSMENT UNABLE TO BE DONE ON PATIENT PRIOR TO HER LEAVING THE DETOX UNIT. Pertinent Past History: History of C.O.P.D., History of Depression, History of Bipolar Disorder, History of Positive PPD, Nicotine Dependence. - Physical Exam Results Vital Signs: Vital Signs Temperature 98 F 05/09/18 06:42 Pulse Rate 106 H 05/09/18 06:42 Respiratory Rate 18 05/09/18 06:42 Blood Pressure 156/99 05/09/18 06:42 O2 Sat by Pulse Oximetry (%) Pertinent Admission Physical Exam Findings: WITHDRAWAL SYMPTOMS. Laboratory Tests 05/07/18 05/08/18 05/08/18 22:10 07:00 07:00 WBC 4.9 RBC 4.25 Hgb 14.9 Hct 42.4 MCV 99.7 H MCH 35.0 H MCHC 35.1 RDW 12.9 Plt Count 236 D MPV 8.4 Sodium 136 Potassium 3.9 Chloride 101 Carbon Dioxide 27 Anion Gap 8 BUN 4 L Creatinine 0.5 L Creat Clearance w eGFR > 60 Random Glucose 86 Calcium 9.0 Total Bilirubin 1.2 H AST 19 ALT 13 Alkaline Phosphatase 73 Total Protein 7.4 Albumin 3.0 L Urine Color Ltyellow Urine Appearance Slcloudy Urine pH 6.0 Ur Specific [place] 1.003 L Urine Protein Negative Urine Glucose (UA) Negative Urine Ketones Negative Urine Blood 1+ H Urine Nitrite Negative Urine Bilirubin Negative Urine Urobilinogen Negative Ur Leukocyte Esterase 1+ H Urine WBC (Auto) 4 Urine RBC (Auto) 2 Ur Epithelial Cells Few Urine Bacteria Rare RPR Titer 05/08/18 07:00 WBC RBC Hgb Hct MCV MCH MCHC RDW Plt Count MPV Sodium Potassium Chloride Carbon Dioxide Anion Gap BUN Creatinine Creat Clearance w eGFR Random Glucose Calcium Total Bilirubin AST ALT Alkaline Phosphatase Total Protein Albumin Urine Color Urine Appearance Urine pH Ur Specific [place] Urine Protein Urine Glucose (UA) Urine Ketones Urine Blood Urine Nitrite Urine Bilirubin Urine Urobilinogen Ur Leukocyte Esterase Urine WBC (Auto) Urine RBC (Auto) Ur Epithelial Cells Urine Bacteria RPR Titer Nonreactive LABS NOTED. - Treatment Hospital Course: Detox Protocol Followed, Detoxed Safely - Medication Discharge Medications: Ambulatory Orders Albuterol Sulfate Inhaler - [Ventolin HFA Inhaler -] 2 inh PO Q4H PRN 02/19/14 - Diagnosis (1) Alcohol dependence with uncomplicated withdrawal Status: Acute (2) Opioid dependence with withdrawal Status: Acute (3) COPD (chronic obstructive pulmonary disease) Status: Chronic Qualifiers: COPD type: unspecified COPD Qualified Code(s): J44.9 - Chronic obstructive pulmonary disease, unspecified (4) History of positive PPD Status: Chronic (5) Nicotine dependence Status: Chronic Qualifiers: Nicotine product type: cigarettes Substance use status: uncomplicated Qualified Code(s): F17.210 - Nicotine dependence, cigarettes, uncomplicated - AMA Did Patient Leave Against Medical Advice: Yes (PATIENT DID NOT WISH TO REMAIN TO COMPLETE DETOX REGIMEN.)
[2018-05-10] MEDS ORDERED: METHADONE HCL 10 MG TABLET (FOR DETOX USE ONLY) PO ONE (10:00)
[2018-05-11] MEDS ORDERED: METHADONE HCL 5 MG TABLET (FOR DETOX USE ONLY) PO ONE (06:00)
== END 2018-05-09 08:32 | disposition left against medical advice (07) | DRG 770 ==
LOC: YASAS 13:07 → Y3N 19:21
PROVIDERS: ADMIT Surgery; ATTEND Surgery
PROC: HZ2ZZZZ Detoxification Services for Substance Abuse Treatment (ICD-10-PCS; principal; 2018-05-07)
DX: F11.23 Opioid dependence with withdrawal (principal); F10.230 Alcohol dependence with withdrawal, uncomplicated; F17.210 Nicotine dependence, cigarettes, uncomplicated; J44.9 Chronic obstructive pulmonary disease, unspecified; R76.11 Nonspecific reaction to tuberculin skin test without active tuberculosis; R00.0 Tachycardia, unspecified
CPT/HCPCS: 36415; 80053; 81003; 81015; 85027; 86593; 93005; 93010